=== PATIENT | male | born 1945 ===

== ENCOUNTER 2020-12-22 15:22 | Emergency (ER) | payer MEDICARE ==
[2020-12-22 16:05] VITALS: BP 151/99
[2020-12-22] MEDS ORDERED: LORazepam 1 MG TAB PO ONE (16:55)
--- NOTE | 2020-12-22 17:00 | Emergency Department Report ---
ED Psych HPI - General Chief Complaint: Anxiety Stated Complaint: ANXIETY Time Seen by Provider: 12/22/20 16:38 Source: patient Mode of arrival: Ambulatory Limitations: No Limitations - History of Present Illness Initial Comments: Chief complaint: "I really could use an Ativan and a few days at [facility] HPI: Is a 75-year-old male with history of anxiety, depression, bipolar disorder presents with anxiety. Patient was discharged yesterday after a week hospitalization at [facility]. [facility]. After pain $950 for first month room and board, he felt that the [facility] was not [facility]. He wanted to be admitted to [facility] since he is homeless. He denies suicidal or homicidal ideation. He denies hallucinations he is in good spirits. He stated that the care at [facility] really helped his anxiety and depression. He denies any physical complaints. He takes Ativan 1 mg twice a day. Complaint: other (Needs penitentiary) Improves With: none Worsens With: none Associated Symptoms: denies other symptoms Treatments Prior to Arrival: other (Discharge from [facility] on yesterday) - Related Data Allergies Allergy/AdvReac Type Severity Reaction Status Date / Time No Known Allergies Allergy Unverified 12/22/20 15:58 ED Review of Systems ROS: Stated complaint: ANXIETY Other details as noted in HPI Comment: All other systems reviewed and negative Constitutional: denies: fever, malaise Eyes: denies: as per HPI Respiratory: denies: cough, shortness of breath Cardiovascular: denies: chest pain Gastrointestinal: denies: abdominal pain, nausea, vomiting Psychiatric: denies: auditory hallucinations, visual hallucinations, homicidal thoughts, suicidal thoughts ED Past Medical Hx - Past Medical History Previous Medical History?: Yes Hx Psychiatric Treatment: Yes (Anxiety) Additional medical history: major depression, Bipolar - Social History Smoking Status: Never Smoker Substance Use Type: None ED Physical Exam - General Limitations: No Limitations, Other General appearance: alert, in no apparent distress, other (Pleasant jovial) - Head Head exam: Present: atraumatic, normocephalic - Eye Eye exam: Present: normal appearance - ENT ENT exam: Present: mucous membranes moist - Neck Neck exam: Present: normal inspection, full ROM - Respiratory Respiratory exam: Present: normal lung sounds bilaterally. Absent: respiratory distress, wheezes, rales, rhonchi - Cardiovascular Cardiovascular Exam: Present: regular rate, normal rhythm, normal heart sounds. Absent: systolic murmur, diastolic murmur, rubs, gallop - GI/Abdominal GI/Abdominal exam: Present: soft, normal bowel sounds. Absent: distended, tenderness, guarding, rebound - Rectal Rectal exam: Present: deferred - Extremities Exam Extremities exam: Present: normal inspection - Back Exam Back exam: Present: normal inspection - Neurological Exam Neurological exam: Present: alert, oriented X3 - Psychiatric Psychiatric exam: Present: normal affect, normal mood. Absent: depressed, agitated, anxious, flat affect, manic, homicidal ideation, suicidal ideation - Skin Skin exam: Present: warm, dry, intact, normal color. Absent: rash ED Course Vital Signs 12/22/20 16:03 Temperature 98.7 F Pulse Rate 110 H Respiratory 20 Rate Blood Pressure 151/99 O2 Sat by Pulse 97 Oximetry ED Medical Decision Making - Medical Decision Making This is a 75-year-old male with history of anxiety disorder, bipolar affective disorder and depression who presents with request assistance with penitentiary. He desires to be readmitted to [facility] since he is homeless. I explained that he will not be able to be admitted due to homelessness. He admits that he is in good spirits. he admits that he is doing well mentally after "graduating" from the program on yesterday. He received 1 mg Ativan orally as requested. He denies suicidal homicidal ideation. He does appear to be in a good mood. He is discharged to self-care Critical care attestation.: If time is entered above; I have spent that time in minutes in the direct care of this critically ill patient, excluding procedure time. ED Disposition Clinical Impression: Anxiety Disposition: HOME / SELF CARE / HOMELESS Is pt being admited?: No Does the pt Need Aspirin: No Condition: Stable
== END 2020-12-22 17:34 | disposition home or self-care (01) ==
LOC: ED 15:22
DX: F41.9 Anxiety disorder, unspecified (principal); F32.9 Major depressive disorder, single episode, unspecified
CPT/HCPCS: 99281